=== PATIENT | female | born 1965 | race Caucasian/White ===

== ENCOUNTER 2017-12-06 20:21 | Emergency (ER) | payer OTHER ==
[2017-12-06 20:34] VITALS: BP 126/66
[2017-12-06] MEDS ORDERED: Tetan/Diph/Pertus SYR(Tdap)* 0.5 ML SYR(BOOSTRIX) use SYR IM ONE (20:56)
[2017-12-06] MEDS ORDERED: Cephalexin CAP* 500 MG PO ONE (20:56)
--- NOTE | 2017-12-06 21:55 | UC ---
Bruce Salinas Gabriel, scribed for Phi Garcia MD on 12/06/17 at 2046 . HPI BURN - HPI Summary HPI Summary: This patient is a 52 year old F presenting to [facility] [place] [facility] accompanied by her with a chief complaint of a burn on the webbing in between her thumb and pointer finger on her left hand. Patient states she burnt her hand on the oven rack while removing food from the oven a week ago. Patient reports fatigue, dizziness, headache, and chills. Patient denies n/v/d, sore throat, nasal congestion, rhinorrhea, pain in the left forearm, and ABD pain. She is concerned about the redness around the burn that is new today but later states that the area that is red was at one point also burnt. She denies any history of MRSA. - History of Current Complaint Chief Complaint: UCBurn Stated Complaint: BURN INJURY Time Seen by Provider: 12/06/17 20:36 Hx Obtained From: Patient Hx Last Menstrual Period: nothing since August 26 Occurred: Weeks Ago - 1 Length of Exposure: Unknown Onset Severity: Moderate Current Severity: None Pain Intensity: 0 Pain Scale Used: 0-10 Numeric Location: LUE Character: Scald Occupational Injury: No - Allergy/Home Medications Allergies/Adverse Reactions: Allergies Allergy/AdvReac Type Severity Reaction Status Date / Time No Known Allergies Allergy Verified 12/06/17 20:34 PMH/Surg Hx/FS Hx/Imm Hx Previously Healthy: Yes Other History Of: Negative For: HIV, Hepatitis B, Hepatitis C - Surgical History Surgical History: None - Family History Known Family History: Positive: Cardiac Disease, Hypertension Negative: Diabetes, Renal Disease, Seizure Disorder, Other - Social History Occupation: Employed Full-time Lives: With Family Alcohol Use: Occasionally Substance Use Type: None Smoking Status (MU): Never Smoked Tobacco - Immunization History Most Recent Influenza Vaccination: 2013 Most Recent Tetanus Shot: unsure Review of Systems Constitutional: Chills, Fatigue Gastrointestinal: Negative - n/v/d Neurological: Headache, Other - dizziness All Other Systems Reviewed And Are Negative: Yes Physical Exam Triage Information Reviewed: Yes Appearance: Well-Appearing, No Pain Distress Vital Signs: Initial Vital Signs Temp 99.9 F 12/06/17 20:29 Pulse 89 12/06/17 20:29 Resp 16 12/06/17 20:29 BP 126/66 12/06/17 20:29 Pulse Ox 97 12/06/17 20:29 Vital Signs Reviewed: Yes ENT: Positive: Normal ENT inspection, Pharynx normal, TMs normal. Negative: Nasal congestion Neck: Positive: Supple Respiratory: Positive: Chest non-tender, Lungs clear, Normal breath sounds, No respiratory distress Cardiovascular: Positive: RRR, No Murmur, Brisk Capillary Refill Abdomen Description: Positive: Nontender Musculoskeletal Exam: Normal Neurological Exam: Normal Skin: Positive: Other - superficial partial thickness burn to the lefthand over the lateral 2nd mp area less than 1 percent TBSA. Minimal secondary cellulitis. Burn Calculation - [place] Formula for Fluid Resuscitation Weight: 63.503 kg 24 -Hour Fluid Replacement: 0.0 Course/Dx Burn - Course Course Of Treatment: 52 yr old female with less than 1 percent TBSA partial thickness burn to left hand without joint involvement. TDAP updated. Mild cellulitis. Plan DC h0me on keflex. Dressing change with bacitracin twice a day until healed. - Diagnoses Clinic Provider Diagnoses: burn left hand superficial partial thickness less than 1 percent TBSA. cellulitis Discharge - Discharge Plan Condition: Good Disposition: HOME Prescriptions: Cephalexin CAP* [Keflex CAP*] 500 mg PO TID #30 cap Patient Education Materials: Cellulitis (ED), Second Degree Burn (ED) Referrals: No Primary Care Phys,NOPCP [Primary Care Provider] - [facility] [place] [facility]ICIAN REFERRAL [Outside] The documentation as recorded by the Bruce jara Gabriel accurately reflects the service I personally performed and the decisions made by , Phi Garcia MD.
== END 2017-12-06 21:15 | disposition home or self-care (01) ==
LOC: UCEAST 20:21
DX: T23.002A Burn of unspecified degree of left hand, unspecified site, initial encounter (principal); T31.0 Burns involving less than 10% of body surface; X08.8XXA Exposure to other specified smoke, fire and flames, initial encounter; Y93.G3 Activity, cooking and baking; Y92.9 Unspecified place or not applicable; Y99.8 Other external cause status
CPT/HCPCS: 90471; 90715; 99212; A9270-GY; G0463